=== PATIENT | male | born 1960 | race Caucasian/White ===

== ENCOUNTER 2020-11-03 11:51 | Inpatient (IN) | payer OTHER ==
[~2020-11-03] VITALS: Ht 170.2 cm; Wt 85.7 kg
[~2020-11-03 11:51] MED LIST: MEDROLDOSEPACK PO
[2020-11-03 11:55] VITALS: BP 148/91
--- NOTE | 2020-11-03 14:40 | EKG ---
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: [facility] : 1960 Requested By: Romain Juan Order Number: [id number] MD: Norman Garcia Measurements Intervals [place] Rate: 102 P: 55 FL: 160 QRS: 93 QRSD: 105 T: 19 QT: 339 QTc: 442 Interpretive Statements Sinus tachycardia Left posterior fascicular block Borderline low voltage, extremity leads No previous ECG available for comparison Electronically Signed On 11-03-2020 14:40:10 CDT by Norman Garcia [email or web address] <ELECTRONICALLY SIGNED> By: Norman Garcia MD, [facility] 11/03/20 1440 1438 1438 Norman Garcia MD, FAC /EPI
[2020-11-03 14:53] LABS: ABSOLUTE LYMPHOCYTES 1.5 thou/uL (0.8-5.3); ABSOLUTE MONOCYTES 1.3 thou/uL (0.0-1.2); ABSOLUTE NEUTROPHILS 14.2 thou/uL (1.6-8.1); BASOPHILS 0.2 %; EOSINOPHILS 0.1 %; HEMOGLOBIN 16.7 gm/dL (14.0-18.0); LYMPHOCYTES 8.9 %; MCH 34.2 pg (26.0-34.0); MCHC 34.7 g/dL (28.0-37.0); MCV 98.6 fL (80.0-100.0); MONOCYTES 7.9 %; MPV 7.7 fl. (7.2-11.1); NUCLEATED RBCS 0 /100WBC; PLATELET COUNT* 204 thou/uL (150-400); POLYS 82.9 %; RBC 4.87 mil/uL (4.50-6.00); RDW-CV 13.4 % (10.5-14.5); WBC 17.1 thou/uL (4.0-11.0)
[2020-11-03 15:02] LABS: URINE BLOOD TRACE (Negative); URINE CLARITY CLEAR; URINE COLOR YELLOW; URINE GLUCOSE-RANDOM TRACE (Negative); URINE LEUKOCYTES-REFLEX NEGATIVE (Negative); URINE NITRITE-REFLEX NEGATIVE (Negative); URINE PROTEIN TRACE (Negative); URINE SPECIFIC GRAVITY >= 1.030 (1.005-1.030)
[2020-11-03 15:05] LABS: CALCIUM 9.4 mg/dL (8.5-10.1); CREATININE 0.8 mg/dL (0.6-1.3); POTASSIUM 3.9 mmol/L (3.5-5.1); URINE BILIRUBIN 1+ (Negative); URINE KETONES 3+ (Negative)
[2020-11-03 15:06] LABS: ICTOTEST (BILI CONFIRMATORY) Negative (Negative)
[2020-11-03 15:08] LABS: ALBUMIN 3.7 g/dL (3.4-5.0); TOTAL BILIRUBIN 1.4 mg/dL (<0.1-1.0); TOTAL PROTEIN 7.8 g/dL (6.4-8.2)
[2020-11-03 17:54] VITALS: BP 139/63
[2020-11-04 05:12] LABS: HEMATOCRIT 43.4 % (42.0-52.0); HEMOGLOBIN 14.9 gm/dL (14.0-18.0); MCH 33.7 pg (26.0-34.0); MCHC 34.2 g/dL (28.0-37.0); MCV 98.6 fL (80.0-100.0); MPV 8.2 fl. (7.2-11.1); NUCLEATED RBCS 0 /100WBC; PLATELET COUNT* 191 thou/uL (150-400); RBC 4.41 mil/uL (4.50-6.00); RDW-CV 13.1 % (10.5-14.5); WBC 12.2 thou/uL (4.0-11.0)
[2020-11-04 05:35] LABS: CALCIUM 8.4 mg/dL (8.5-10.1); CREATININE 0.8 mg/dL (0.6-1.3); POTASSIUM 4.2 mmol/L (3.5-5.1)
--- NOTE | 2020-11-04 08:15 | NUR ---
PATIENT BROUGHT FROM PACU AT APPROXIMATELY 2230 AND ADMITTED TO ROOM 219. VSS ON 2L 02 VIA NASAL CANNULA. PATIENT HAS RESTED OFF AND ON DURING THE NIGHT. PAIN WELL CONTROLLED WHEN PATIENT ASSESSED. PATIENT STATES THAT HE IS JUST A LITTLE SORE BUT FEELS GOOD. MIDLINE INCISION LOOKS GOOD AND DRESSING IS C/D/I AND LAPROSCOPIC INCISION HAS DRESSING C/D/I AND CINDY DRAIN IN PLACE WITH MODERATE AMOUNT OF SEROSANGUINEOUS DRAINAGE. PATIENT HAS HAD SOME URINE HESITANCY SO WAS BLADDER SCANNED. PATIENT SHOWED 450CC. PATIENT HAS URINATED TWICE APPROXIMATELY 130CC OF URINE. PATIENT HAS REMAINED NPO ORDERED EXCEPT FOR SMALL SIPS OF WATER AND SMALL AMOUNT OF ICE CHIPS PER PATIENT REQUEST. PATIENT INSTRUCTED TO USE CALL LIGHT WHEN NEEDING ASSISTANCE. HOURLY ROUNDS MADE. WILL CONTINUE WITH PLAN OF CARE AND NURSING TO MONITOR.
[2020-11-04 09:00] VITALS: BP 118/74
[2020-11-04 09:04] LABS: ABSOLUTE LYMPHOCYTES 0.6 thou/uL (0.8-5.3); ABSOLUTE MONOCYTES 0.9 thou/uL (0.0-1.2); ABSOLUTE NEUTROPHILS 10.7 thou/uL (1.6-8.1); PLATELET ESTIMATE ADEQUATE
[2020-11-04 12:00] VITALS: BP 116/74
[2020-11-04 16:00] VITALS: BP 122/76
--- NOTE | 2020-11-04 19:59 | NUR ---
PT. AOX4, VSS, PAIN UNDER CONTROL, CALL LIGHT AND PERSONAL BELONGINGS PLACED WITHIN REACH. ABDOMINAL DRESSINGS CHANGED PER DR. ORTIZ. CINDY DRAIN OUTPUT AT 25 ML FOR SHIFT. PT IN CHAIR, READING A BOOK, IN ALERT CONDITION, AT SHIFT CHANGE.
[2020-11-04 20:30] VITALS: BP 117/77
[2020-11-05] VITALS: BP 107/70
--- NOTE | 2020-11-05 02:22 | NUR ---
ASSUMED CARE OF PT AT 1900. PT IS ALERT AND ORIENTED. GENNA. BALA. PT HAS A MIDLINE INCISION WITH AN ISLAND DRESSING CLEAN DRY AND INTACT. CINYD DRAIN WITH A SMALL AMT OF BLOODY DRAINAGE. PT IS IN MED SURG STATUS. PT IS SLEEPING QUIETLY IN BED. RESPIRATIONS ARE EVEN AND NONLABORED. WILL CONTINUE TO MONITOR PT.
[2020-11-05 07:20] VITALS: BP 111/74
[2020-11-05 16:00] VITALS: BP 144/81
--- NOTE | 2020-11-05 16:18 | NUR ---
PT REMAINED ALERT AND ORIENTED. PT UP WLAKING IN ROOM. PASSING GAS. FALL RISK PRECAUTIONS IN PLACE. HOURLY ROUNDING COMPLETED. CALL LIGT WITHIN REACH.
[2020-11-05 19:30] VITALS: BP 141/95
--- NOTE | 2020-11-06 00:53 | NUR ---
ASSUMED CARE OF PT AT 1900. PT IS ALERT AND ORIENTED. VSS. BALA. PT HAS A MIDLINE INCISION ON ABDOMAN. DRESSING CLEAN DRY AND INTACT. CINDY DRAIN HAS VERY MINIMAL BLOODY DRAINAGE. PT IS MED SURG. PT IS SLEEPING QUIETLY IN BED. RESPIRATIONS ARE EVEN AND NONLABORED. WILL CONTINUE TO MONITOR PT.
[2020-11-06 08:00] VITALS: BP 126/89
[2020-11-06] MEDS ORDERED: AUGMENTIN 875-1 EACH PO (08:18)
--- NOTE | 2020-11-06 10:31 | NUR ---
CM ASSESSMENT: PT A&O, INDEPENDENT WITH ADL'S, ACTIVE AND WORKS OUTSIDE THE HOME. NO CM D/C PLANNING NEEDS ANTICIPATED. CM WILL REMAIN AVAILABLE TO ASSIST AND FOLLOW NEEDED.
[2020-11-06 11:19] VITALS: BP 126/89
[2020-11-06 12:11] VITALS: BP 126/89
--- NOTE | 2020-11-06 12:14 | NUR ---
PATIENT IS A&OX4, PLEASANT AND COOPERATIVE WITH CARES. PATIENT GIVEN D/C INSTRUCTIONS, PRESCRIPTIONS FOR AUGMENTIN, OXYCODONE WELL INFORMATION SHEETS ON THOSE NEW PRESCRIPTIONS. IV REMOVED. PATIENT DENIES PAIN/QUESTIONS/CONCERNS PRIOR TO D/C. PATIENT LEFT UNIT WITH PERSONAL BELONGINGS VIA W/C, ACCOMPANIED BY NURSING STAFF AT APPROX. 1200 TO MEET HIS UNCLE AT ER ENTRANCE.
--- NOTE | 2020-11-10 11:07 | PATH ---
[address] [address] PATHOLOGY RPT PROCEDURE Name: CLIVEMELANIE Naqvi Room: [address] IN M.R.#: [id number] Admission: 11/03/20 Date of : 56 Discharge: 11/06/20 Report #: [id number] Path Case #: [id number] [facility] Accession Number: [id number] . 01 Material submitted: . colon - RIGHT COLON. Modifiers: right . 01 Clinical history: . ACUTE APPENDICITIS . 02 Diagnosis: Terminal ileum, appendix, and right colon, "right colon", resection: - 0.7 x 0.5 cm transmural defect, consistent with perforation in cecum. - Marked acute appendicitis along with marked acute serositis. - Transmural hemorrhage at perforated area. - Acute serositis identified along the large intestine serosal surface. - Minute hyperplastic polyp within cecum. - Margins of resection unremarkable. (IUV:jamel; 11/08/2020) QMS 11/08/2020 1609 Local . 02 Comment: Dr. Danny Milian has seen this case and concurs with the interpretation. . 02 Electronically signed: . Kerrie Lees MD, Pathologist NPI- [id number] . 01 Gross description: . The specimen is received in formalin, labeled "Melanie Duffy, right colon". It consists of a segment of terminal ileum (8.5 cm long by 2.5 cm in diameter) contiguous with cecum and ascending colon (7.5 cm long and ranges in diameter from 4.0-5.8 cm). Both margins are stapled and appear grossly viable. The appendix is not grossly attached to the cecum. Sectioning the attached fat at the cecum reveals a lumen grossly consistent with the appendix (2.0 cm long by 0.7 cm in diameter). A perforation is identified at the distal tip. The remaining cut surfaces display an unremarkable lumen. Identified at the cecum is a 0.7 x 0.5 cm transmural defect (surrounding serosa inked orange). Also identified at the cecum is a 2.5 cm staple line (serosa inked black). The remaining serosa appears woo and smooth with a moderate amount of woo-mejias exudate. Sectioning reveals a woo polyp within the cecum measuring 0.3 x 0.3 x 0.1 cm. The remaining mucosa appears woo with grossly unremarkable mucosal folds. The bowel wall averages 0.3 cm thick. Design Consultant sections are submitted as follows: A1: Cross-sections of appendix including perforation and cross-section of tip A2: [place]forated [place] [address] PATHOLOGY RPT PROCEDURE Name: MELANIE DUFFY Room: [address] DIS IN M.R.#: [id number] Admission: 11/03/20 Date of : 56 Discharge: 11/06/20 Report #: [id number] Path Case #: [id number] A3: Stapled area at cecum A4: polyp at cecum A5: Ileocecal valve (MRF; 11/07/2020) A6: Proximal small bowel margin A7: Distal colon margin (MRF; 11/08/2020) MFE/MFE 11/08/2020 [facility]3 Local . 02 Pathologist provided ICD-10: K35.80, K65.8, K92.2, K63.5 . 02 CPT . 014688 Specimen Comment: A courtesy copy of this report has been sent to [phone] Specimen Comment: Report sent to Specimen Comment: A duplicate report has been generated due to demographic updates. Performed at: 01 [facility] [address], [place] [id number] MD Bobby Chambers MD Phone: [phone] Performed at: [address] [facility] [address] [id number] MD Kerrie Lees MD Phone: [phone]
--- NOTE | 2020-11-13 22:04 | OP ---
[address] [address] OPERATIVE REPORT Name: MELANIE DUFFY Room: [address] IN M.R.#: [id number] Admission: 11/03/20 Attend Phys: Ryan Melchor DO Discharge: 11/06/20 Date of : 56 Report #: [id number] THIS REPORT FOR: cc: FAM - No family physician/PCP FAM - No family physician/PCP Ryan Melchor DO ~ DATE OF SURGERY: 11/03/2020 PREOPERATIVE DIAGNOSIS: Acute appendicitis. POSTOPERATIVE DIAGNOSES: Acute ruptured appendicitis with feculent peritonitis. PROCEDURE: Laparoscopic appendectomy converted to laparotomy with ileocecal resection, primary anastomosis with omental patch. SURGEON: Ryan Melchor DO TYPE OF ANESTHESIA: General endotracheal. ESTIMATED BLOOD LOSS: Less than 200 mL. COMPLICATIONS: None. DESCRIPTION OF PROCEDURE: After obtaining proper consents and discussing risks and complications with the patient, he was taken to the operating room, laid in the supine position and administered general endotracheal anesthetics. He was then prepped and draped in the usual sterile fashion. A time-out was performed. We confirmed the appropriate patient and procedure. Preoperative antibiotics were given. SCDs were in place. We then made a supraumbilical skin incision with an #11 scalpel blade. This was carried down through the skin into the subcutaneous tissue using electrocautery for hemostasis. Once the fascia was encountered, it was incised along the midline, grasped and elevated with Abelino clamps and divided further. The peritoneum was then bluntly opened using a hemostat, 2-0 Vicryl sutures were placed in a [id number] fashion to secure the Stefanie trocar, which was then inserted and insufflation was begun. Once insufflation was complete, full visual inspection of the anterior abdominal organs was performed. This revealed an inflammatory mass in the right lower quadrant. There was omentum surrounding this mass and attached to the abdominal wall. I was then able to place another 5 mm trocar in the suprapubic position. I was then able to bluntly sweep this inflammatory mass down and it appeared to be just omentum covering the cecum and terminal ileum. We placed another 12 mm trocar in the left lower quadrant. I was then able to free up the omentum and identified the cecum. Immediately found numerous fecaliths as well as some stool, which was leaking into the peritoneal cavity. At this point, I continued to try to identify the appendix and I spent approximately an hour to an hour and a half of using suction off and on as well as blunt [place] [address] OPERATIVE REPORT Name: MELANIE DUFFY Room: [address] IN [facility].#: [id number] Admission: 11/03/20 Attend Phys: Ryan Melchor, Discharge: 11/06/20 Date of : 56 Report #: [id number] Harmonic scalpel in order to free up the entire right colon and the terminal ileum. I was still unable to identify the entire appendix and especially the appendix at its base. After quite some time attempting this, again like I said over an hour, I elected to perform a mini laparotomy. I had freed the entire right colon at this point, so I made a small midline incision and then I was able to get down through the fascia and peritoneum and opened the peritoneum for the entire width of the hand. I was then able to insert my hand into the peritoneal cavity. I did extend the incision slightly, so I could visualize this area better. I was then able to bring up the terminal ileum and right colon into the incision. Once I did this, I still had difficulty identifying the base of the appendix. It appeared that this had probably ruptured right at the base. I did find what appeared to be a portion of the appendix still attached to the cecum, but this did not appear to be the base of the appendix. At this point, I elected to perform an ileocecal resection and we did this by opening an avascular window in the mesentery of the terminal ileum. I then also opened an avascular window in the mesentery of the ascending colon. I then used a VALENCIA to fire across proximally and distally. We then used the LigaSure Impact device to sequentially clamp and divide the mesentery. Once this was done, I then passed off the specimen. We then prepared both ends, the terminal ileum and the ascending colon, for reanastomosis. The ends were placed together and sutured in place using 2-0 Vicryl suture. I then opened an enterotomy in the small bowel and a colotomy in the ascending colon. I then inserted a VALENCIA 80 mm into both sides and fired this to form the common channel. I then used a TA 60 stapling device to close the enterotomy. Next, I placed three crotch sutures using 2-0 Vicryl suture and following that, I placed an omental patch over top of the entire anastomosis as well, securing it in place with 2-0 Vicryl suture. I then closed the mesenteric defect as well using 2-0 Vicryl suture. I then copiously irrigated the abdominal cavity after I dropped this back into the peritoneal cavity. We also placed a 19-Nepali Ish-Loya drain through a separate stab incision. This was placed down next to the anastomosis as well as extending up along the right pericolic gutter. I then closed the peritoneum and fascia together using #1 looped PDS suture. Subcutaneous tissues were closed using 3-0 Vicryl suture. All skin incisions were closed using srikanth. The patient was then awakened in the operating room and transported to recovery room in stable condition. Sponge, needle and instrument counts were all correct at the end of the procedure. <ELECTRONICALLY SIGNED> By: Ryan Melchor DO 11/13/20 2204 1420 1454Atra Melchor DO /nt
== END 2020-11-06 12:00 | disposition home or self-care (01) | DRG 330 ==
LOC: M.ERS 11:51 → M.SUR 11:51 → M.ERS 17:55 → M.2W 21:29
PROVIDERS: Emergency Medicine Emergency Medical Services; ADMIT Surgery; ATTEND Surgery
PROC: 0WJG4ZZ Inspection of Peritoneal Cavity, Percutaneous Endoscopic Approach (ICD-10-PCS; principal; 2020-11-03)
PROC: 0DTB0ZZ Resection of Ileum, Open Approach (ICD-10-PCS; principal; 2020-11-03)
PROC: 0DTJ0ZZ Resection of Appendix, Open Approach (ICD-10-PCS; principal; 2020-11-03)
DX: K35.33 Acute appendicitis with perforation, localized peritonitis, and gangrene, with abscess (principal); R65.10 Systemic inflammatory response syndrome (SIRS) of non-infectious origin without acute organ dysfunction; Z20.822 Contact with and (suspected) exposure to COVID-19; B19.20 Unspecified viral hepatitis C without hepatic coma; Z87.891 Personal history of nicotine dependence